=== PATIENT | female | born 1940 | race Caucasian/White ===

== ENCOUNTER → 2016-09-20 | Outpatient (CLI) | payer OTHER ==
[2016-09-20 12:51] LABS: BASO % 0.7 %; BASO ABS # 0.03 K/uL (0-0.2); COMPLETE YES; EOS % 3.7 %; HEMATOCRIT 38.2 % (37-47); LYMPH % 43.1 %; LYMPH ABS # 1.75 K/uL (1.2-3.4); MEAN CELL VOLUME 90.7 fL (80-100); MEAN CORPUSCULAR HEMOGLOBIN 31.4 pg (25-34); MEAN CORPUSCULAR HGB CONC 34.6 g/dl (32-36); MEAN PLATELET VOLUME 10.1 fL (7.4-10.4); MONO % 10.3 %; NEUT % 42.2 %; PLATELET COUNT 206 K/uL (130-400); RED BLOOD COUNT 4.21 M/uL (4.2-5.4); WHITE BLOOD COUNT 4.06 K/uL (4.8-10.8)
[2016-09-20 13:29] LABS: ALT/SGPT 23 U/L (12-78); BLOOD UREA NITROGEN 20 mg/dl (7-18); BUN/CREATININE RATIO 19.5 (10-20); CALCIUM 8.7 mg/dl (8.5-10.1); CARBON DIOXIDE 26 mmol/L (21-32); CHLORIDE 107 mmol/L (98-107); CHOLESTEROL 254 mg/dl (0-200); GLUCOSE 89 mg/dl (70-99); POTASSIUM 3.9 mmol/L (3.5-5.1); SODIUM 142 mmol/L (136-145)
[2016-09-20 13:40] LABS: ALKALINE PHOSPHATASE 46 U/L (45-117); AST/SGOT 20 U/L (15-37); CHOLESTEROL/HDL RATIO 2.5; HDL CHOLESTEROL 100 mg/dl; LDL CHOLESTEROL CALCULATED 140 mg/dl; TRIGLYCERIDES 72 mg/dl (0-150); VERY LOW DENSITY LIPOPROT CALC 14 mg/dl
== END | disposition home or self-care (01) ==
LOC: C.LABMFLN 07:24
PROVIDERS: ATTEND Family Medicine
DX: I10 Essential (primary) hypertension (principal); E78.5 Hyperlipidemia, unspecified

== ENCOUNTER → 2017-10-15 | Outpatient (CLI) | payer OTHER ==
[2017-10-15 12:30] LABS: BASO % 0.8 %; BASO ABS # 0.04 K/uL (0-0.2); EOS % 2.5 %; EOS ABS # 0.12 K/uL (0-0.5); HEMOGLOBIN 13.3 g/dL (12.0-16.0); LYMPH % 35.8 %; LYMPH ABS # 1.69 K/uL (1.2-3.4); MEAN CELL VOLUME 92.6 fL (80-100); MEAN CORPUSCULAR HEMOGLOBIN 31.6 pg (25-34); MEAN CORPUSCULAR HGB CONC 34.1 g/dl (32-36); MONO % 9.3 %; MONO ABS # 0.44 K/uL (0.11-0.59); NEUT % 51.6 %; NEUT ABS # 2.43 K/uL (1.4-6.5); PLATELET COUNT 213 K/uL (130-400); RED CELL DISTRIBUTION WIDTH CV 13.7 % (11.5-14.5); RED CELL DISTRIBUTION WIDTH SD 46.4 fL (36.4-46.3); WHITE BLOOD COUNT 4.72 K/uL (4.8-10.8)
[2017-10-15 13:10] LABS: ALBUMIN 3.5 gm/dl (3.4-5.0); ALT/SGPT 28 U/L (12-78); BLOOD UREA NITROGEN 20 mg/dl (7-18); CALCIUM 8.9 mg/dl (8.5-10.1); CARBON DIOXIDE 28 mmol/L (21-32); CHOLESTEROL 263 mg/dl (0-200); CREATININE 1.05 mg/dl (0.60-1.20); GLUCOSE 88 mg/dl (70-99); SODIUM 140 mmol/L (136-145)
[2017-10-15 13:21] LABS: ALKALINE PHOSPHATASE 60 U/L (45-117); AST/SGOT 21 U/L (15-37); LDL CHOLESTEROL CALCULATED 157 mg/dl; TOTAL PROTEIN 7.2 gm/dl (6.4-8.2)
== END | disposition home or self-care (01) ==
LOC: C.LABMFLN 09:09
PROVIDERS: ATTEND Family Medicine
DX: I10 Essential (primary) hypertension (principal); E78.5 Hyperlipidemia, unspecified

== ENCOUNTER 2023-04-02 18:59 | Observation (INO) ==
[2023-04-02] MEDS ORDERED: ONDANSETRON INJ 2 MG/ML 2 ML VIAL ONE (19:58)
[2023-04-02] MEDS ORDERED: ONDANSETRON INJ 2 MG/ML 2 ML VIAL IV STA (20:00)
[2023-04-02 20:21] LABS: Basophils # (auto) 0.04 K/uL (0.00-0.20); Basophils % (auto) 0.6 %; Eosinophils # (auto) 0.04 K/uL (0.00-0.50); Eosinophils % (auto) 0.6 %; Hemoglobin 13.9 g/dl (12.0-16.0); Immature Granulocytes # (auto) 0.05 K/uL (0.01-0.20); Immature Granulocytes % (auto) 0.8 %; Lymphocytes # (auto) 1.29 K/uL (1.20-3.40); Lymphocytes % (auto) 19.9 %; Mean Corpuscular Hemoglobin 31.9 pg (25.0-34.0); Mean Corpuscular Hgb Conc 34.8 g/dL (32.0-36.0); Mean Corpuscular Volume 91.7 fL (80.0-100.0); Mean Platelet Volume 10.3 fL (9.4-12.4); Monocytes # (auto) 0.46 K/uL (0.11-0.59); Monocytes % (auto) 7.1 %; Neutrophils # (auto) 4.61 K/uL (1.40-6.50); Platelet Count 208 K/uL (130-400); RDW Coefficient of Variation 12.2 % (11.5-14.5); RDW Standard Deviation 41.1 fL (36.4-46.3); Red Blood Count 4.36 M/uL (4.20-5.40); White Blood Count 6.49 K/ul (4.8-10.8)
[2023-04-02 20:38] LABS: Alanine Aminotransferase 16 U/L (7-52); Albumin Globulin Ratio 1.7 (0.9-2); Alkaline Phosphatase 54 U/L (34-104); Anion Gap 9 (3-11); Aspartate Aminotransferase 22 U/L (13-39); BUN Creatinine Ratio 17.2 (10-20); Bilirubin,Total 0.9 mg/dl (0.2-1.0); Blood Urea Nitrogen 16 mg/dl (6-23); Calcium 9.5 mg/dl (8.6-10.3); Carbon Dioxide 25 mmol/L (21-32); Chloride 102 mmol/L (98-107); Est GFR (African American) 67.3 ml/min; Globulin 2.3 gm/dl (2.5-4.0); Glucose 142 mg/dl (70-99(Fasting)); Sodium 136 mmol/L (136-145); Total Protein 6.3 gm/dl (6.0-8.3)
[2023-04-02] MEDS ORDERED: SODIUM CHLORIDE 0.9% 1000ML 1,000 ML IV ONE (20:42)
[2023-04-02] MEDS ORDERED: MECLIZINE HCL 25 MG TAB PO STA (20:42)
[2023-04-02 20:44] LABS: Troponin I High Sensitivity 3.6 pg/ml (0-14)
--- NOTE | 2023-04-02 20:44 | Emergency Department Note ---
History of Present Illness General Chief complaint: Vertigo Stated complaint: VERTIGO Time Seen by Provider: 04/02/23 20:12 History of Present Illness 82-year-old female presents emergency department with complaint of dizziness that started last evening and then worsened this evening in which she states she has vertigo. Patient states that she was lightheaded nauseated. Patient states at times when she turned her head was spinning and the room was spinning. Patient denies any slurred speech blurred vision difficulty walking or vomiting. Patient denies tinnitus or hearing loss. Patient denies any headache recent trauma to her head recent infections or fever. Patient states that she is actually much improved upon arrival to the emergency department. Home Medications Medication Instructions Recorded Confirmed Type cholecalciferol (vitamin D3) 25 25 mcg PO QAM 10/27/21 04/02/23 History mcg (1,000 unit) tablet (Vitamin D3) multivitamin (Multiple Vitamins 1 tab PO QAM 10/27/21 04/02/23 History tablet) omega-3 acid ethyl esters 1 gram 1 cap PO QAM 10/27/21 04/02/23 History capsule red yeast rice 600 mg tablet 600 mg PO QAM 10/27/21 04/02/23 History losartan 100 mg tablet 100 mg PO QAM #90 tabs 06/10/22 04/02/23 Rx zinc acetate 50 mg (zinc) capsule 50 mg PO QAM 04/02/23 04/02/23 History Allergies Allergy/AdvReac Type Severity Reaction Status Date / Time latex Allergy Intermediate rash, Verified 04/02/23 22:46 rough skin Penicillins Allergy Intermediate Hives Verified 04/02/23 22:46 lisinopril AdvReac Intermediate Cough Verified 04/02/23 22:46 Past Med/Surg History Medical History Adenomatous colon polyp Benign essential hypertension Hyperlipidemia Surgical History H/O arthroscopic knee surgery left H/O colonoscopy 10/31/22 repeat 5yrs H/O oral surgery non removable tooth implant History of bilateral cataract extraction History of gynecologic surgery D&E History of wisdom tooth extraction S/P appendectomy Family History Mother Benign essential hypertension Brother Prostate cancer Coronary heart disease Aunt Breast cancer Sister Benign essential hypertension Father Myocardial infarction Other No family history of adverse response to anesthesia Denies family history of Ovarian cancer Colorectal cancer Social History Smoking Status: Never smoker Second Hand Exposure: No; Do You Dip or Chew Tobacco: No; Hx Alcohol Use: No Hx Substance Use: No Preferred Language: [place] Communication Ability: Effective Visual Impairment: Limited Hearing Ability: Normal Non Destructive Testing Inspector Required: No Beliefs That Will Affect Care: None marital status: Current Living Situation: Spouse and Family Current Living Situation Comment: Lives with and granddaughter current occupational status: retired How many Children do You have: 2 Feels Safe at Home: Yes Childhood Exposure to Second-Hand Smoke: No Diet: regular caffeine: Yes during the past year weight has: remained stable Dental Care, Regularly: Yes Physical Activity Frequency: Daily Physical Activity Frequency Comment: Ride bicycle and walk outside when the weather is nicer. Seatbelt Use: always Sunscreen Use: Yes Do you think of yourself as: straight/heterosexual Gender Identity: Female Assistive Devices: Glasses Review of Systems A total of 10 systems reviewed and were otherwise negative Ear, Nose, Mouth, Throat: no ear pain and no tinnitus Neurologic: + dizziness Physical Exam Vital Signs Vital Signs - 24 hr 04/02/23 19:07 04/02/23 21:06 04/02/23 22:28 Temperature 36.9 C Temperature Source Temporal Artery Scan Pulse Rate 91 H Pulse Rate [Finger] 75 80 Respiratory Rate 16 20 16 Respiratory Effort / Characteristics Non-Labored Spontaneous Respiratory Depth Normal Blood Pressure 186/91 H Blood Pressure [Right Arm] 176/102 H 154/91 H Blood Pressure Mean 122 Blood Pressure Mean [Right Arm] 126 112 Pulse Oximetry 97 96 98 Oxygen Delivery Method Room Air Room Air Room Air Sepsis Recent Fever Within 48 Hours No Sepsis New/Unexplained Change in Mental Status N/A Sepsis Action Taken by Nursing No Action Required 04/02/23 22:30 Temperature Temperature Source Pulse Rate Pulse Rate [Finger] 88 Respiratory Rate Respiratory Effort / Characteristics Respiratory Depth Blood Pressure Blood Pressure [Right Arm] 173/91 H Blood Pressure Mean Blood Pressure Mean [Right Arm] 118 Pulse Oximetry 97 Oxygen Delivery Method Room Air Sepsis Recent Fever Within 48 Hours Sepsis New/Unexplained Change in Mental Status Sepsis Action Taken by Nursing GENERAL: Patient is awake alert in no acute distress patient is resting comfortably and showing no signs of anxiety EYES: The conjunctivae are clear. The pupils are round and reactive. EARS, NOSE, MOUTH AND THROAT: The nose is without any evidence of any deformity. Mucous membranes are moist. Tongue is midline. TMs are clear bilaterally NECK: The neck is nontender and supple. No meningismus RESPIRATORY: Normal respiratory effort is noted there is no evidence of wheezing rhonchi or rales CARDIOVASCULAR: Regular rate and rhythm noted there no murmurs rubs or gallops normal S1 normal S2. GASTROINTESTINAL: The abdomen is soft. Abdomen is nontender. BACK: No midline tenderness or or step-off noted range of motion in flexion extension as well as rotation no signs of muscle spasm noted MUSCULOSKELETAL/EXTREMITIES: There is no evidence of gross deformity full range of motion is noted in the hips and shoulders. SKIN: There is no obvious evidence of any rash. There are no petechiae, pallor or cyanosis noted. NEUROLOGIC: Patient is awake alert and oriented x3 strength is symmetric; GCS of 15, NIH of 0, no nystagmus Course Reevaluation(s) Reevaluation #1: Patient was ambulatory however states that she felt off balance and was dizzy. Time: 22:54 Consultations Consultation #1: Case was discussed with the [facility] for admission for dizziness -after discussion the patient had a prior Lyme infection and just stopped taking Doxy 2 days ago. Patient will be admitted and have an MRI as well may have Lyme neuritis after discussion with the [facility] Time: 22:54 Administered Medications Discontinued Medications Sodium Chloride (Nss 1000ml) 1,000 mls @ 999 mls/hr IV .Q1H1M ONE Stop: 04/02/23 21:42 Last Infusion: 04/02/23 22:50 Dose: 0 mls/hr Documented By: Admin: 04/02/23 21:05 Dose: 999 mls/hr Documented By: ABHISHEK Meclizine HCl (Meclizine Hcl 25 Mg Tab) 25 mg PO NOW STA Stop: 04/02/23 20:43 Last Admin: 04/02/23 21:02 Dose: 25 mg Documented By: ABHISHEK Ondansetron HCl (Ondansetron Inj 2 Mg/Ml 2 Ml Vial) Confirm Administered Dose 4 mg .ROUTE .STK-MED ONE Stop: 04/02/23 19:59 Last Admin: 04/02/23 20:01 Dose: Not Given Documented By: MCKAYLA Ondansetron HCl (Ondansetron Inj 2 Mg/Ml 2 Ml Vial) 4 mg IV NOW STA Stop: 04/02/23 20:01 Last Admin: 04/02/23 20:01 Dose: 4 mg Documented By: MCKAYLA Medical Decision Making Medical Records Attestation: I reviewed the patient's medical records. Home Medications Current Medication List: was personally reviewed by Laboratory Data Attestation: I reviewed the patient's lab results. Labs interpreted by me unremarkable 04/02/23 20:00 04/02/23 20:00 Lab Results 04/02/23 04/02/23 04/02/23 Range/Units 20:00 20:00 22:00 WBC 6.49 (4.8-10.8) K/ul RBC 4.36 (4.20-5.40) M/uL Hgb 13.9 (12.0-16.0) g/dl Hct 40.0 (37.0-47.0) % MCV 91.7 (80.0-100.0) fL MCH 31.9 (25.0-34.0) pg MCHC 34.8 (32.0-36.0) g/dL RDW Std Deviation 41.1 (36.4-46.3) fL RDW Coeff of Agueda 12.2 (11.5-14.5) % Plt Count 208 (130-400) K/uL MPV 10.3 (9.4-12.4) fL Immature Gran % (Auto) 0.8 % Neut % (Auto) 71.0 % Lymph % (Auto) 19.9 % [place] % (Auto) 7.1 % Eos % (Auto) 0.6 % Baso % (Auto) 0.6 % Neut # (Auto) 4.61 (1.40-6.50) K/uL Lymph # (Auto) 1.29 (1.20-3.40) K/uL [place] # (Auto) 0.46 (0.11-0.59) K/uL Eos # (Auto) 0.04 (0.00-0.50) K/uL Baso # (Auto) 0.04 (0.00-0.20) K/uL Immature Gran # (Auto) 0.05 (0.01-0.20) K/uL Sodium 136 (136-145) mmol/L Potassium 4.0 (3.5-5.1) mmol/L Chloride 102 (98-107) mmol/L Carbon Dioxide 25 (21-32) mmol/L Anion Gap 9 (3-11) BUN 16 (6-23) mg/dl Creatinine 0.93 (0.6-1.2) mg/dl Est Cr Clr Drug Dosing Not Reportable Est GFR ( Amer) 67.3 ml/min Est GFR (Non-Af Amer) 58.0 ml/min BUN/Creatinine Ratio 17.2 (10-20) Glucose 142 H (70-99(Fasting)) mg/dl Calcium 9.5 (8.6-10.3) mg/dl Total Bilirubin 0.9 (0.2-1.0) mg/dl AST 22 (13-39) U/L ALT 16 (7-52) U/L Alkaline Phosphatase 54 (34-104) U/L Troponin I High Sens 3.6 (0-14) pg/ml Total Protein 6.3 (6.0-8.3) gm/dl Albumin 4.0 (3.4-5.0) gm/dl Globulin 2.3 L (2.5-4.0) gm/dl Albumin/Globulin Ratio 1.7 (0.9-2) Urine Color Yellow Urine Appearance Clear (Clear) Urine pH 7.5 (4.5-7.5) Ur Specific [place] 1.010 (1.000-1.030) Urine Protein Negative (Negative) Urine Glucose (UA) Negative (Negative) Urine Ketones 1+ H (Negative) Urine Blood Negative (Negative) Urine Nitrite Negative (Negative) Urine Bilirubin Negative (Negative) Urine Urobilinogen Negative (Negative) Ur Leukocyte Esterase Negative (Negative) Imaging Data Attestation: I personally reviewed and interpreted this imaging study as follows: My Impression: CT of brain per my interpretation negative for intracranial hemorrhage Radiologist's Impression: Head CT 04/02/23 19:08 Exam(s): CT HEAD Without Contrast EXAM: CT Head Without Intravenous Contrast CLINICAL HISTORY: Reason for exam: vertigo. TECHNIQUE: Axial computed tomography images of the head/brain without intravenous contrast. CTDI is 36.62 mGy and DLP is 625.8 mGy-cm. Automated exposure control was utilized for the study. A dose lowering technique was utilized adhering to the principles of ALARA. COMPARISON: No relevant prior studies available. FINDINGS: No acute intracranial hemorrhage. No midline shift or mass effect. The territorial cummings-white matter differentiation is maintained throughout. Age-related cerebral volume loss. Periventricular and subcortical white matter hypoattenuation, consistent with chronic microangiopathy. The visualized orbits appear grossly unremarkable. The calvarium is intact. The visualized paranasal sinuses and mastoid air cells are grossly clear. IMPRESSION: No acute intracranial hemorrhage, midline shift, or mass effect. Electronically signed by: Dileep Jackson MD 04/02/23 20:54 PM ECG Data Attestation: I personally reviewed and interpreted this ECG as follows: Additional Comments: EKG interpreted by me normal sinus rhythm rate of 80, left axis deviation, nonspecific ST-T change, no obvious ST segment elevation Telemetry was ordered by me, interpreted as normal sinus rhythm rate of 80 MDM Narrative Medical decision making differential diagnosis includes vertigo, TIA, CVA, intracranial hemorrhage, electrolyte abnormality, cardiac dysrhythmia, labyrinthitis Plan is to check labs, EKG, CT Patient was given IV Zofran IV fluids and meclizine History was provided to me by the patient's at bedside as well Impression & Plan Dizziness Discharge Plan Visit Data Chief Complaint: Vertigo Stated Complaint: VERTIGO ED Provider: Philip García Discharge Problem: Dizziness Patient Disposition: Admitted As Inpatient Forms Stand Alone Forms: My [facility] Prescriptions Prescriptions: No Action losartan 100 mg tablet 100 mg PO QAM Qty: 90 3RF Rx Instructions: PER PT "HAD EMESIS RIGHT AFTER TAKING TO DAY". zinc acetate 50 mg (zinc) Capsule 50 mg PO QAM multivitamin [Multiple Vitamins] tablet 1 tab PO QAM omega-3 acid ethyl esters 1 gram capsule 1 cap PO QAM red yeast rice 600 mg tablet 600 mg PO QAM cholecalciferol (vitamin D3) [Vitamin D3] 25 mcg (1,000 unit) Tablet 25 mcg PO QAM Referrals Referrals: Iveth Hobbs DO [Primary Care Provider] -
--- NOTE | 2023-04-02 20:55 | CT Scan Report ---
Exam(s): CT HEAD Without Contrast EXAM: CT Head Without Intravenous Contrast CLINICAL HISTORY: Reason for exam: vertigo. TECHNIQUE: Axial computed tomography images of the head/brain without intravenous contrast. CTDI is 36.62 mGy and DLP is 625.8 mGy-cm. Automated exposure control was utilized for the study. A dose lowering technique was utilized adhering to the principles of ALARA. COMPARISON: No relevant prior studies available. FINDINGS: No acute intracranial hemorrhage. No midline shift or mass effect. The territorial cummings-white matter differentiation is maintained throughout. Age-related cerebral volume loss. Periventricular and subcortical white matter hypoattenuation, consistent with chronic microangiopathy. The visualized orbits appear grossly unremarkable. The calvarium is intact. The visualized paranasal sinuses and mastoid air cells are grossly clear. IMPRESSION: No acute intracranial hemorrhage, midline shift, or mass effect. Electronically signed by: Dileep Jackson MD 04/02/23 20:54 PM
[2023-04-02 22:33] LABS: Appearance Urine Clear (Clear); Bilirubin Urine Negative (Negative); Blood Urine Negative (Negative); Color Urine Yellow; Glucose Urine UA Negative (Negative); Ketones Urine 1+ (Negative); Leukocyte Esterase Urine Negative (Negative); Nitrite Urine Negative (Negative); Protein Urine Negative (Negative); Urobilinogen Urine Negative (Negative); pH Urine 7.5 (4.5-7.5)
[2023-04-02] MEDS ORDERED: cefTRIAXone SODIUM 2,000 MG in DEXTROSE 5% 50 ML IV SCH (23:45)
--- NOTE | 2023-04-02 23:56 | History & Physical Report ---
Date of Service April 02, 2023 Assessment & Plan (1) Lyme disease: (2) Stroke-like symptoms: (3) Hyperlipidemia: (4) Benign essential hypertension: Plan Strokelike symptoms- CT scan of head without contrast negative COVID-19 testing negative MRI brain without contrast ordered Stroke without tPA order set Lyme disease- Patient reports she had the classic ECM rash She was positive for Lyme disease She completed 16 days of doxycycline 100 mg twice daily about 24 hours before neurologic symptoms developed Would be concerned about the possibility of central nervous system Lyme disease Place on ceftriaxone 2 g IV every 24 hours Doxycycline 100 mg p.o. twice daily Follow clinical examination She could possibly have had concurrent anaplasmosis Hyperlipidemia- Hold red yeast rice Hypertension- Continue losartan History of Present Illness Chief Complaint: The patient presents to the emergency department with 24 hours of lightheadedness, dizziness, vertigo, generalized weakness and nausea. Primary Care Provider: Iveth Hobbs DO The patient is an 82-year-old female with a past medical history including colon polyps, hypertension, hyperlipidemia. She presents to the emergency department with symptoms as noted above, that had been partially relieved with Zofran IV and meclizine p.o., But patient was still very uneasy when trying to walk and was off balance. During conversation she reports that she was diagnosed with Lyme disease about 18 days ago, and completed 16 days of doxycycline on Saturday, about 24 hours before the symptoms developed. Significant laboratory abnormalities: Glucose 122. Patient was COVID-[address] scan of head was negative Allergies Allergy/AdvReac Type Severity Reaction Status Date / Time latex Allergy Intermediate rash, Verified 04/02/23 22:46 rough skin Penicillins Allergy Intermediate Hives Verified 04/02/23 22:46 lisinopril AdvReac Intermediate Cough Verified 04/02/23 22:46 Home Medications Medication Instructions Recorded Confirmed Type cholecalciferol (vitamin D3) 25 25 mcg PO QAM 10/27/21 04/02/23 History mcg (1,000 unit) tablet (Vitamin D3) multivitamin (Multiple Vitamins 1 tab PO QAM 10/27/21 04/02/23 History tablet) omega-3 acid ethyl esters 1 gram 1 cap PO QAM 10/27/21 04/02/23 History capsule red yeast rice 600 mg tablet 600 mg PO QAM 10/27/21 04/02/23 History losartan 100 mg tablet 100 mg PO QAM #90 tabs 06/10/22 04/02/23 Rx zinc acetate 50 mg (zinc) capsule 50 mg PO QAM 04/02/23 04/02/23 History Past Med/Surg History Medical History Adenomatous colon polyp Benign essential hypertension Hyperlipidemia Surgical History H/O arthroscopic knee surgery left H/O colonoscopy 10/31/22 repeat 5yrs H/O oral surgery non removable tooth implant History of bilateral cataract extraction History of gynecologic surgery D&E History of wisdom tooth extraction S/P appendectomy Family History Mother Benign essential hypertension Brother Prostate cancer Coronary heart disease Aunt Breast cancer Sister Benign essential hypertension Father Myocardial infarction Other No family history of adverse response to anesthesia Denies family history of Ovarian cancer Colorectal cancer Social History Smoking Status: Never smoker Second Hand Exposure: No; Do You Dip or Chew Tobacco: No; Hx Alcohol Use: No Hx Substance Use: No Preferred Language: Nepalese Communication Ability: Effective Visual Impairment: Limited Hearing Ability: Normal Stiff Straw Hat Washer Required: No Beliefs That Will Affect Care: None marital status: Current Living Situation: Spouse and Family Current Living Situation Comment: Lives with and granddaughter current occupational status: retired How many Children do You have: 2 Feels Safe at Home: Yes Childhood Exposure to Second-Hand Smoke: No Diet: regular caffeine: Yes during the past year weight has: remained stable Dental Care, Regularly: Yes Physical Activity Frequency: Daily Physical Activity Frequency Comment: Ride bicycle and walk outside when the weather is nicer. Seatbelt Use: always Sunscreen Use: Yes Do you think of yourself as: straight/heterosexual Gender Identity: Female Assistive Devices: Glasses Review of Systems Review of Systems: The patient denies chest pain, palpitations, shortness of breath, dyspnea on exertion, cough, lower extremity swelling, sore throat, fevers, chills, sweats, vomiting, diarrhea , constipation, abdominal pain, pelvic pain, blood in urine or stool, dysuria, urinary frequency or urgency, memory loss, loss of consciousness, rash, abnormal bruising or bleeding, focal or generalized weakness, numbness or tingling in arms or legs, generalized arthralgias or myalgias, back or neck pain, or night sweats. The review of systems is otherwise negative other than for that already noted above, and at least 10 systems have been reviewed. Physical Exam Physical Exam: The patient is awake, alert and oriented 3, well developed and well nourished, normocephalic and atraumatic, lying in bed and in no acute distress. HEENT--PERRL, EOMI, mucous membranes and oropharynx mildly dry. Neck--supple. No JVD. No bruits. Thyroid normal, trachea midline, no adenopathy. Heart--normal S1 and S2. No murmurs, rubs or gallops. Lungs--clear bilaterally, no respiratory distress, no accessory muscle use. Abdomen--normal bowel sounds and soft. Nontender. Nondistended, no hernias or masses, no organomegaly. Extremities--no cyanosis or clubbing. No edema. There are good distal pulses b/l. Dermatologic--normal skin turgor, normal color, no abnormal lymph nodes, no rash. Neurologic--cranial nerves II through XII grossly intact. Motor strength 5/5 upper and lower extremities. Sensation intact. Cerebellar functioning normal Rheumatologic--normal range of motion. Psychiatric--normal affect. Results & Data Results & Data Vital Signs (Past 12 Hours) Vital Signs Temp Pulse Pulse Resp BP BP Pulse Ox 04/02/23 22:30 88 173/91 H 97 04/02/23 22:28 80 16 154/91 H 98 04/02/23 21:06 75 20 176/102 H 96 04/02/23 19:07 36.9 C 91 H 16 186/91 H 97 O2 Del Method 04/02/23 22:30 Room Air 04/02/23 22:28 Room Air 04/02/23 21:06 Room Air 04/02/23 19:07 Room Air Laboratory Results Laboratory Results WBC 6.49 K/ul (4.8-10.8) 04/02/23 20:00 RBC 4.36 M/uL (4.20-5.40) 04/02/23 20:00 Hgb 13.9 g/dl (12.0-16.0) 04/02/23 20:00 Hct 40.0 % (37.0-47.0) 04/02/23 20:00 MCV 91.7 fL (80.0-100.0) 04/02/23 20:00 MCH 31.9 pg (25.0-34.0) 04/02/23 20:00 MCHC 34.8 g/dL (32.0-36.0) 04/02/23 20:00 RDW Std Deviation 41.1 fL (36.4-46.3) 04/02/23 20:00 RDW Coeff of Agueda 12.2 % (11.5-14.5) 04/02/23 20:00 Plt Count 208 K/uL (130-400) 04/02/23 20:00 MPV 10.3 fL (9.4-12.4) 04/02/23 20:00 Immature Gran % (Auto) 0.8 % 04/02/23 20:00 Neut % (Auto) 71.0 % 04/02/23 20:00 Lymph % (Auto) 19.9 % 04/02/23 20:00 [place] % (Auto) 7.1 % 04/02/23 20:00 Eos % (Auto) 0.6 % 04/02/23 20:00 Baso % (Auto) 0.6 % 04/02/23 20:00 Neut # (Auto) 4.61 K/uL (1.40-6.50) 04/02/23 20:00 Lymph # (Auto) 1.29 K/uL (1.20-3.40) 04/02/23 20:00 [place] # (Auto) 0.46 K/uL (0.11-0.59) 04/02/23 20:00 Eos # (Auto) 0.04 K/uL (0.00-0.50) 04/02/23 20:00 Baso # (Auto) 0.04 K/uL (0.00-0.20) 04/02/23 20:00 Immature Gran # (Auto) 0.05 K/uL (0.01-0.20) 04/02/23 20:00 Sodium 136 mmol/L (136-145) 04/02/23 20:00 Potassium 4.0 mmol/L (3.5-5.1) 04/02/23 20:00 Chloride 102 mmol/L (98-107) 04/02/23 20:00 Carbon Dioxide 25 mmol/L (21-32) 04/02/23 20:00 Anion Gap 9 (3-11) 04/02/23 20:00 BUN 16 mg/dl (6-23) 04/02/23 20:00 Creatinine 0.93 mg/dl (0.6-1.2) 04/02/23 20:00 Est Cr Clr Drug Dosing Not Reportable 04/02/23 20:00 Est GFR ( Amer) 67.3 ml/min 04/02/23 20:00 Est GFR (Non-Af Amer) 58.0 ml/min 04/02/23 20:00 BUN/Creatinine Ratio 17.2 (10-20) 04/02/23 20:00 Glucose 142 mg/dl (70-99(Fasting)) H 04/02/23 20:00 Calcium 9.5 mg/dl (8.6-10.3) 04/02/23 20:00 Total Bilirubin 0.9 mg/dl (0.2-1.0) 04/02/23 20:00 AST 22 U/L (13-39) 04/02/23 20:00 ALT 16 U/L (7-52) 04/02/23 20:00 Alkaline Phosphatase 54 U/L (34-104) 04/02/23 20:00 Troponin I High Sens 3.6 pg/ml (0-14) 04/02/23 20:00 Total Protein 6.3 gm/dl (6.0-8.3) 04/02/23 20:00 Albumin 4.0 gm/dl (3.4-5.0) 04/02/23 20:00 Globulin 2.3 gm/dl (2.5-4.0) L 04/02/23 20:00 Albumin/Globulin Ratio 1.7 (0.9-2) 04/02/23 20:00 Urine Color Yellow 04/02/23 22:00 Urine Appearance Clear (Clear) 04/02/23 22:00 Urine pH 7.5 (4.5-7.5) 04/02/23 22:00 Ur Specific [place] 1.010 (1.000-1.030) 04/02/23 22:00 Urine Protein Negative (Negative) 04/02/23 22:00 Urine Glucose (UA) Negative (Negative) 04/02/23 22:00 Urine Ketones 1+ (Negative) H 04/02/23 22:00 Urine Blood Negative (Negative) 04/02/23 22:00 Urine Nitrite Negative (Negative) 04/02/23 22:00 Urine Bilirubin Negative (Negative) 04/02/23 22:00 Urine Urobilinogen Negative (Negative) 04/02/23 22:00 Ur Leukocyte Esterase Negative (Negative) 04/02/23 22:[address] 04/02/23 19:08 Exam(s): CT HEAD Without Contrast EXAM: CT Head Without Intravenous Contrast CLINICAL HISTORY: Reason for exam: vertigo. TECHNIQUE: Axial computed tomography images of the head/brain without intravenous contrast. CTDI is 36.62 mGy and DLP is 625.8 mGy-cm. Automated exposure control was utilized for the study. A dose lowering technique was utilized adhering to the principles of ALARA. COMPARISON: No relevant prior studies available. FINDINGS: No acute intracranial hemorrhage. No midline shift or mass effect. The territorial cummings-white matter differentiation is maintained throughout. Age-related cerebral volume loss. Periventricular and subcortical white matter hypoattenuation, consistent with chronic microangiopathy. The visualized orbits appear grossly unremarkable. The calvarium is intact. The visualized paranasal sinuses and mastoid air cells are grossly clear. IMPRESSION: No acute intracranial hemorrhage, midline shift, or mass effect. Electronically signed by: Dileep Jackson MD 04/02/23 20:54 PM Code Status & VTE Plan Code Status Full code PG Care Time/CCT Total # of Minutes Spent Total Time Spent with Patient: Total time spent is greater than 50% in coordination of care (as documented) at patient's floor/unit and/or counseling patient: Coding Level of Care Code 12557 INT INP/OBS CARE 3/75MIN Diagnoses Lyme disease A69.20 Stroke-like symptoms R29.90 Hyperlipidemia E78.5 Benign essential hypertension I10
[2023-04-03] MEDS: DOXYCYCLINE HYCLATE 100 MG CAP PO SCH ×2 (01:04→09:39)
[2023-04-03] MEDS ORDERED: ACETAMINOPHEN 325 MG TAB PO PRN (03:22)
[2023-04-03] MEDS ORDERED: PHARMACIST DISCHARGE MED REC CONSULT PRN (03:22)
[2023-04-03] MEDS ORDERED: NSS + 20MEQ KCL 20 MEQ/1,000 ML BAG IV SCH (03:22)
[2023-04-03] MEDS ORDERED: ONDANSETRON INJ 2 MG/ML 2 ML VIAL IV PRN (03:22)
[2023-04-03 04:04] LABS: Basophils # (auto) 0.01 K/uL (0.00-0.20); Basophils % (auto) 0.1 %; Hematocrit (blood only) 37.1 % (37.0-47.0); Hemoglobin 12.7 g/dl (12.0-16.0); Immature Granulocytes # (auto) 0.02 K/uL (0.01-0.20); Immature Granulocytes % (auto) 0.3 %; Lymphocytes # (auto) 1.23 K/uL (1.20-3.40); Mean Corpuscular Hemoglobin 31.6 pg (25.0-34.0); Mean Corpuscular Hgb Conc 34.2 g/dL (32.0-36.0); Mean Corpuscular Volume 92.3 fL (80.0-100.0); Mean Platelet Volume 10.1 fL (9.4-12.4); Monocytes % (auto) 6.5 %; Neutrophils # (auto) 5.94 K/uL (1.40-6.50); Neutrophils % (auto) 77.1 %; Platelet Count 193 K/uL (130-400); RDW Coefficient of Variation 12.4 % (11.5-14.5); RDW Standard Deviation 42.4 fL (36.4-46.3); Red Blood Count 4.02 M/uL (4.20-5.40)
[2023-04-03 04:21] LABS: Alanine Aminotransferase 14 U/L (7-52); Albumin Globulin Ratio 1.6 (0.9-2); Albumin Level 3.5 gm/dl (3.4-5.0); Alkaline Phosphatase 47 U/L (34-104); Anion Gap 6 (3-11); Aspartate Aminotransferase 20 U/L (13-39); BUN Creatinine Ratio 14.1 (10-20); Bilirubin,Total 0.5 mg/dl (0.2-1.0); Blood Urea Nitrogen 13 mg/dl (6-23); Calcium 8.8 mg/dl (8.6-10.3); Carbon Dioxide 26 mmol/L (21-32); Chloride 105 mmol/L (98-107); Cholesterol 229 mg/dl (0-200); Est GFR (African American) 68.2 ml/min; Est GFR (Non-African American) 58.8 ml/min; Globulin 2.2 gm/dl (2.5-4.0); Glucose 110 mg/dl (70-99(Fasting)); HDL Cholesterol 76 mg/dl; LDL Cholesterol Calculated 135 mg/dl; Magnesium 1.7 mg/dl (1.7-2.4); Potassium 3.8 mmol/L (3.5-5.1); Sodium 137 mmol/L (136-145); Total Protein 5.7 gm/dl (6.0-8.3); Triglycerides 88 mg/dl (0-150); VLDL Cholesterol 18 mg/dl (0-30)
[2023-04-03 04:27] LABS: Troponin I High Sensitivity 4.3 pg/ml (0-14)
--- OUTSIDE RECORDS SUMMARY | 2023-04-03 06:40 | External Medical Summary | Summary of Care ---
[place] [address] Care Team Providers Care Supervisor Plasma Name Role Phone Eileen Reveles MD Primary Care Provider Encounter Details Date Type Department Care Team Description 04/07/2020 Orders Only Radiology, [facility] [address] [place] [address] Requisition, External Radiology [address] [place] [address] Encounter for screening mammogram for breast cancer* Allergies Active Allergy Reactions Severity Noted Date Comments Lisinopril Cough 12/31/2014 Penicillins 08/19/2008 hives documented as of this encounter (statuses as of 04/07/2020) Medications Medication Sig Dispensed Refills Start Date End Date Status MULTIVITAMINS PO TABS 1 tab daily 0 Ac tive GARLIC 100 MG PO TABS 1 tab twice daily 0 Active OMEGA 3 1000 MG PO CAPS 1 tab daily 0 Active ASPIRIN 325 MG PO TABS 1/2 tab daily as needed 0 Active losartan (COZAAR) 25 MG Tablet Take 50 mg by mouth daily. 0 Active Red Yeast Rice 600 MG CAPS daily. 0 Active Magnesium 400 MG Capsule Take 400 mg by mouth daily. 0 Active documented as of this encounter (statuses as of 04/07/2020) Active Problems Problem Noted Date Elevated blood pressure, situational Other constipation 08/19/2008 Irritable bowel syndrome 08/19/2008 Hemorrhoids, external without complicati ons 08/19/2008 documented as of this encounter (statuses as of 04/07/2020) Immunizations Name Administration Dates Next Due Seasonal Influenza, Trivalen t, with Preserve, 3yr & Above, Split 08/19/2008(Deferred: Patient Refused) TDAP (age 10 and older)(Boostrix) 04/13/2017 documented as of this encounter Social History Tobacco Use Types Packs/Day Years Used Date Never Smoker Alcohol Use Drinks/Week oz/Week Comments No Sex Assigned at Date Recorded Not on file Job Start Date Occupation Industry Not on file Not on file Not on file Travel History Travel Start Travel End documented as of this encounter Plan of Treatment Upcoming Encounters Date Type Specialty Care Team Description 04/13/2020 Appointment Radiology 05/04/2020 Hospital Encounter Endoscopy [facility] Obrien [facility] [address] [facility] [place] [address] 05/04/2020 Surgery Endoscopy Levar Obrien MD [address] [facility] [place] [address] COLONOSCOPY FLEXIBLE PROXIMAL DIAGNOSTIC Scheduled Orders Name Type Priority Associated Diagnoses Orde r Schedule MAMMOGRAM SCREENING VAUGHN BILATERAL Medical Imaging Routine Encounter for screening mammogram for breast cancer Ordered: 04/07/2020 Health Maintenance Due Date Last Done Comments Zoster Vaccines (1 of 2) 1992 DXA-SCREENING EVERY 7 YRS-US E SMARTSET# 9671 TO ORDER 2007 Pneumococcal Vaccine: 65+ Years (1 of 2 - PCV13) 2007 DIABETES SCREEN EVERY 3 YRS-AGE 45 AND ABOVE 12/31/2017 12/31/2014, 09/07/2008 Influenza Vaccine (FLU shot) (#1) 2020 DTaP,Tdap,and Td Vaccines (2 - Td) 04/13/2027 04/13/2017 MENINGOCOCCAL (MENACTRA/MENVEO) Aged Out No longer eligible b ased on patient's age to complete this topic documented as of this encounter Implants Implanted Type Area Dietitian Device Identifier Shelf Expiration Date Model / Serial / Lot Olympus Quickclippro Implanted:Qty: 1 on 11/27/2018 by Levar Obrien MD at [facility] 04/04/2021 [id number] / / [id number] Description:To colon polypec bebe site documented as of this encounter Visit Diagnoses Diagnosis Encounter for screening mammogram for breast cancer- Primary documented in this encounter Advance Directives Documents on File Type Date Recorded Patient Healthcare Administrative Assistant Expl anation Advanced Directive Advanced Directive Advanced Directive Advanced Directive 11/27/2018 8:49 AM Advanced Directive
--- OUTSIDE RECORDS SUMMARY | 2023-04-03 06:41 | External Medical Summary | Summary of Care ---
Author Name [place] [address] Phone Care Team Providers Care Dog Breeder Name Role Phone Eileen Reveles MD Primary Care Provider Encounter Details Date Type Department Care Team Description 10/23/2017 Orders Only Radiology, [facility] [address] [place], [place] [id number] Requisition, External Radiology [address] [place] [address] Abnormal mammogram* Allergies Active Allergy Reactions Severity Noted Date Comments Lisinopril Cough 12/31/2014 Penicillins 08/19/2008 hives as of this encounter Medications Prescription Sig. Disp. Refills Start Date End Date Status MULTIVITAMINS PO TABS 1 tab daily Ac tive GARLIC 100 MG PO TABS 1 tab twice daily Active OMEGA 3 1000 MG PO CAPS 1 tab daily Active ASPIRIN 325 MG PO TABS 1/2 tab daily as needed Active losartan (COZAAR) 25 MG Tablet Take 25 mg by mouth daily. Active as of this encounter Active Problems Problem Noted Date Elevated blood pressure, situational Other constipation 08/19/2008 Irritable bowel syndrome 08/19/2008 Hemorrhoids, external without complicati ons 08/19/2008 as of this encounter Immunizations Name Dates Previously Given Next Due Seasonal Influenza, Trivalen t, with Preserve, 3yr & Above, Split 08/19/2008(Deferred: Patient Refused) TDAP (age 10 and older)(Boostrix) 04/13/2017 as of this encounter Social History Tobacco Use Types Packs/Day Years Used Date Never Smoker Alcohol Use Drinks/Week oz/Week Comments No Sex Assigned at Date Recorded Not on file as of this encounter Plan of Treatment Upcoming Encounters Date Type Specialty Care Team Description 11/08/2017 Imaging Radiology [place]1, [facility] [address] [place] [address] 11/08/2017 Imaging Radiology [facility] [address] [place] [address] Scheduled Tests Name Priority Associated Diagnoses Order S chedule US BREAST UNILATERAL LIMITED Routine Abnormal mammogram Ordered: 10/23/2017 Health Maintenance Due Date Last Done Comments DXA-SCREENING EVERY 7 YRS-US E SMARTSET# 3348 TO ORDER 2007 PNEUMOCOCCAL ADULT 65 YRS AN D OVER (1 of 2 - PCV13) 2007 Influenza Vaccine (FLU shot) (#1) 2017 DIABETES SCREEN EVERY 3 YRS- AGE 45 AND ABOVE 12/31/2017 12/31/2014, 09/07/2008 DTaP,Tdap,and Td Vaccines (2 - Td) 04/13/20272016 as of this encounter Implants Not on fileas of this encounter Visit Diagnoses Diagnosis Abnormal mammogram - Primary Abnormal mammogram, unspecified in this encounter Insurance Payer Benefit Plan / Group Subscriber ID Type Phone Address MEDICARE MEDICARE A AND B [id number] Medicare [employer] [place] COMMERCIAL [place] COMM[employer]CIAL INS [id number] [place] [address] as of this encounter
--- OUTSIDE RECORDS SUMMARY | 2023-04-03 06:41 | External Medical Summary | Summary of Care ---
Author Name [place] [address] Phone Care Team Providers Care Hot Plate Press Operator Name Role Phone Eileen Reveles MD Primary Care Provider Encounter Details Date Type Department Care Team Description 10/23/2017 Orders Only Radiology, [facility] [address] [place], [place] [id number] Requisition, External Radiology [address] [place] [address] Abnormal mammogram* Allergies Active Allergy [...] Description 11/08/2017 Imaging Radiology Mammography1, [facility] [address] [place] [address] 11/08/2017 Imaging Radiology [facility] [address] [place] [address] Scheduled Tests Name Priority [...] Phone Address MEDICARE MEDICARE A AND B [id number] Medicare [place], [place] COMMERCIAL INS COMMERCIAL INS [id number] [place] [address] as of this encounter
--- OUTSIDE RECORDS SUMMARY | 2023-04-03 06:41 | External Medical Summary | Summary of Care ---
Author Name [place] [address] Phone Care Team Providers Care Cattle Knocker Name Role Phone Eileen Reveles MD Primary Care Provider Encounter Details Date Type Department Care Team Description 10/23/2017 Orders Only Radiology, [facility] [address] [place], [place] [phone] Requisition, External Radiology [address] [place] [address] Abnormal mammogram* Allergies Active Allergy [...] Description 11/08/2017 Imaging Radiology Mammography1, [facility] [address] [place] [address] 11/08/2017 Imaging Radiology [facility] [address] [place] [address] Scheduled Tests Name Priority Associated Diagnoses Order S chedule MAMMOGRAM DIAGNOSTIC BILATERAL Routine Abnormal mammogram Ordered: 10/23/2017 Health Maintenance [...] Phone Address MEDICARE MEDICARE A AND B [id number] Medicare [place], [place] COMMERCIAL INS COMMERCIAL INS [id number] [place] [address] as of this encounter
--- NOTE | 2023-04-03 06:43 | Magnetic Resonance Report ---
MR brain wo con CLINICAL HISTORY: stroke-like symptoms TECHNIQUE: Multiplanar and multisequence MR images of the brain were obtained without intravenous con trast. Comparison: None available at the time of this dictation. FINDINGS: No abnormal restricted diffusion is identified. Foci of T2 and FLAIR hyperintensity are noted in the paraventricular areas consistent with chronic small vessel ischemic disease. Ex vacuo ventriculomegal y and sulcal enlargement is noted compatible with diffuse volume loss. No mass is seen. There is no m ass effect or midline shift. There is no evidence of acute intraparenchymal hemorrhage. No extra axia l fluid collections are seen. The corpus callosum, pituitary gland, and cerebellar tonsils appear loretta ssly unremarkable. Flow voids of the major intracranial arterial vessels are identified. Mucous retention cysts are in t he left maxillary sinus. IMPRESSION: No acute abnormality and in particular no evidence of acute infarct. ACT 112: Negative or not required by law. Electronically signed by: Dominic Downing M.D. 04/03/2023 6:41 AM
[2023-04-03 07:42] LABS: Estimated Average Glucose 120 mg/dl; Hemoglobin A1C 5.8 % (4.5-5.6)
[2023-04-03] MEDS ORDERED: LOSARTAN POTASSIUM 50 MG TAB PO SCH (09:00)
[2023-04-03] MEDS ORDERED: ASPIRIN 81 MG ECTAB PO SCH (09:00)
[2023-04-03] MEDS ORDERED: MULTIVITAMIN TAB PO SCH (09:00)
[2023-04-03] MEDS ORDERED: ZINC SULFATE 220 MG CAPSULE PO SCH (09:00)
[2023-04-03] MEDS ORDERED: ATORVASTATIN 20 MG TAB PO SCH (09:00)
[2023-04-03] MEDS ORDERED: OMEGA-3 (PURIFIED FISH OIL) 1 GM CAP PO SCH (09:00)
[2023-04-03] MEDS ORDERED: CHOLECALCIFEROL 1,000 UNITS 25 MCG TAB PO SCH (09:00)
[2023-04-03] MEDS: MECLIZINE 12.5 MG TAB PO SCH ×2 (10:04→14:40)
[2023-04-03] MEDS ORDERED: STROKE PATIENT DISCHARGE STA (17:57)
--- NOTE | 2023-04-03 18:07 | Discharge Summary ---
Date of Service April 03, 2023 Admission HPI Per Admitting Provider The patient is an 82-year-old female with a past medical history including colon polyps, hypertension, hyperlipidemia. She presents to the emergency department with symptoms as noted above, that had been partially relieved with Zofran IV and meclizine p.o., But patient was still very uneasy when trying to walk and was off balance. During conversation she reports that she was diagnosed with Lyme disease about 18 days ago, and completed 16 days of doxycycline on Saturday, about 24 hours before the symptoms developed. Significant laboratory abnormalities: Glucose 122. Patient was COVID-[address] scan of head was negative Discharge Data Allergies Allergy/AdvReac Type Severity Reaction Status Date / Time latex Allergy Intermediate rash, Verified 04/02/23 22:46 rough skin Penicillins Allergy Intermediate Hives Verified 04/02/23 22:46 lisinopril AdvReac Intermediate Cough Verified 04/02/23 22:46 Consultations 04/02/23 22:52 ED Decision to Admit Stat Ordered Studies 04/02/23 19:08 CT head/brain wo con Stat 04/03/23 03:22 MR brain wo con Routine Discharge Plan Discharge Items Patient Disposition: Home - Self-Care Reason For Visit: Vertigo Discharge Diagnosis: 1. vertigo - likely due to inner ear problem - improved 2. recent early stage Lyme disease Driving/Machine Use: No driving until VERTIGO IS COMPLETELY RESOLVED & YOU ARE OFF MECLIZINE Non-emergency contact: Primary Care Provider Call non-emergency contact if: you have any medication questions, your symptoms worsen and you have a fever Follow-up/Referrals: Iveth Hobbs, [Primary Care Provider] - Diet: Regular Addtl Attending Provider Instructions: Malik Lepe presented to the hospital with several days of vertigo/severe dizziness. This was associated with nausea/vomiting. You responded very rapidly to meclizine medication which is the drug of choice for vertigo. Your MRI of the brain did NOT show a stroke as the cause of your vertigo. Most cases of vertigo (90% or more) originate from the inner ear. The problem can be from either ear. In many cases the trigger is a recent viral infection that gets into the inner ear. Lyme disease is not known to get into the inner ear. It can cause central nervous system infection (meningitis, encephalitis, etc) but you have no symptoms to suggest these conditions. It is likely that your recent early stage Lyme disease was not associated with your vertigo. Further, doxycycline is not known to cause vertigo either. If your vertigo was from the inner ear most cases of this resolve within about 5-7 days. There are other causes of inner ear vertigo but hopefully this was a one-time occurrence and this does not become a chronic, recurring problem. Recommendations - 1. Meclizine vertigo medication - * take a meclizine tonight at bedtime * tomorrow - 04/04 - take meclizine every 8 hours for a total of 3 doses * 04/05 and 04/06 - take meclizine twice daily on those 2 days * 04/07 - take meclizine in the morning, then switch to NEEDED use thereafter 2. For nausea/vomiting - * ondansetron 4mg every 6 hours as needed 3. Good hydration over the next few days. 4. No driving or operating heavy machinery until ALL VERTIGO IS COMPLETELY RESOLVED AND YOU ARE FULLY OFF THE MECLIZINE MEDICATION. Follow-up with your family doctor either this Saturday or early next week - we will help you get an appointment Return to [facility] if - * you have fevers over 100 degrees * your vertigo is not being controlled by the meclizine * you have uncontrolled nausea/vomiting * any other concerns It was our pleasure to care for you! -Dr Weinstein Pending Studies at Discharge: No Stand-Alone Forms: [facility], Smoking Cessation Medications and DC Order Prescriptions: New meclizine 12.5 mg Tablet 12.5 mg PO TID PRN (Reason: VERTIGO/DIZZINESS) Qty: 30 0RF ondansetron 4 mg tablet,disintegrating 4 mg PO Q6H PRN (Reason: nausea and vomiting) Qty: 10 0RF Continued losartan 100 mg tablet 100 mg PO QAM Qty: 90 3RF Rx Instructions: PER PT "HAD EMESIS RIGHT AFTER TAKING TO DAY". zinc acetate 50 mg (zinc) Capsule 50 mg PO QAM multivitamin [Multiple Vitamins] tablet 1 tab PO QAM omega-3 acid ethyl esters 1 gram capsule 1 cap PO QAM red yeast rice 600 mg tablet 600 mg PO QAM cholecalciferol (vitamin D3) [Vitamin D3] 25 mcg (1,000 unit) Tablet 25 mcg PO QAM Discharge Orders: Discharge Order (Routine); Ordered 04/03/23 Ordered By: Wilfrido Triplett/Raul Patient Handouts: ED Vertigo, Unspecified Admission Data Admit Date/Time: 04/02/23 23:56 Attending Provider: Wilfrido Weinstein Admit Provider: Sal Mckenzie Primary Care Provider: Iveth Hobbs Other Providers: Sal Mckenzie Coding Diagnoses
== END 2023-04-03 18:23 | disposition home or self-care (01) ==
LOC: EDINP 18:59 → ED 18:59 → SUATTDRO 23:56 → EDINP 04-03 03:21 → 2S 04-03 13:33